=== PATIENT | female | born 1950 | race Caucasian/White ===

== ENCOUNTER → 2021-12-30 | Outpatient (CLI) | payer MEDICARE, OTHER ==
[~2021-12-30] VITALS: Ht 157.5 cm; Wt 104.3 kg
[~2021-12-30] MED LIST: ALDACTONE 25MG25 MG PO; ALDACTONE25 MG PO; ATORVASTATIN CA40 MG PO; CATAPRES 0.1MG0.1 MG PO; DIABETA 5 MG TAB5 MG PO; DONEPEZIL HCL5 MG PO; ELAVIL 50 MG TA50 MG PO; ESCITALOPRAM OX10 MG PO; HYGROTON TAB 2525 MG PO; LANTUS SOL100 UNIT/1 SQ; LEVAQUIN500 MG PO; LISINOPRIL5 MG PO; MACROBID 100 M100 MG PO; METOPROLOL TAR100 MG PO; NORVASC 5 MG TAB5 MG PO; TRULICITY1.5 MG/0.5 SQ; ZYRTEC10 MG PO
== END ==
LOC: EROP 15:56
DX: U07.1 COVID-19 (principal); Z23 Encounter for immunization
CPT/HCPCS: M0222; Q0222